=== PATIENT | female | born 1950 | race Two or more races ===

== ENCOUNTER 2019-08-29 15:34 | Inpatient (IN) | payer OTHER ==
[~2019-08-29] VITALS: Ht 160 cm; Wt 68.8 kg
[2019-08-29 15:36] VITALS: Ht 160 cm; Wt 68.8 kg
[2019-08-29 16:37] LABS: PLATELET COUNT 320 x10^3mcL (130-400)
[2019-08-29 16:49] LABS: RED CELL DISTRIBUTION WIDTH 16.3 % (11.5-14.5)
[2019-08-29 16:54] LABS: ALBUMIN 2.3 g/dL (3.4-5.0); BILIRUBIN TOTAL 0.34 mg/dL (0.20-1.00); CALCIUM 8.4 mg/dL (8.5-10.1); CARBON DIOXIDE 17.2 mmol/L (21-32); CREATININE SERUM 3.5 mg/dL (0.6-1.0); POTASSIUM SERUM 4.1 mmol/L (3.5-5.1); TOTAL PROTEIN, SERUM 6.9 g/dL (6.4-8.2)
[2019-08-29 17:20] LABS: BAND NEUTROPHIL 5 % (0-10); METAMYELOCTE 1 % (0-2); MONOCYTE 4 % (0-7); SEGMENTED NEUTROPHILS 88 % (37-75)
[2019-08-29 17:21] LABS: acanthocyte (spur cell) 2+; ovalocyte/elliptocyte 1+; rbc morphology (normal/abnorm) ABNORMAL (NORMAL)
[2019-08-29 17:22] LABS: PLATELET MORPHOLOGY PLATELETS NORMAL
[2019-08-29] MEDS ORDERED: LOSARTAN POTASS25 M1 (17:41)
[2019-08-29] MEDS ORDERED: AUTOJECT 21 EACH (17:41)
[2019-08-29] MEDS ORDERED: VITAMIN E100 IU (17:42)
[2019-08-29] MEDS ORDERED: MULTIVITAMIN1 SGL (17:42)
[2019-08-29 19:13] LABS: AMPHETAMINE QUAL UR NONE DETECTED (See below)
[2019-08-29 19:16] LABS: CHOLESTEROL/HDL RATIO 13.6; T3 TOTAL 0.75 ng/mL
[2019-08-29 19:31] LABS: FREE T4 1.73 ng/dL (0.76-1.46); FREE THYROXINE INDEX 3.6 ug/dL (1.4-4.5); T4(THYROXINE) 9.9 ug/dL (4.7-13.3)
[2019-08-29 21:46] VITALS: BP 141/74
[2019-08-29 23:10] VITALS: BP 138/67
[2019-08-29 23:11] LABS: BASOPHIL % 0.1 % (0-2); PLATELET COUNT 293 x10^3mcL (130-400)
[2019-08-29 23:12] LABS: RED CELL DISTRIBUTION WIDTH 16.8 % (11.5-14.5)
[2019-08-30] VITALS (7 sets, daily range): BP systolic 129–178; BP diastolic 62–91
[2019-08-30 06:04] LABS: BASOPHIL % 0.2 % (0-2); CALCIUM 8.2 mg/dL (8.5-10.1); CARBON DIOXIDE 19.2 mmol/L (21-32); MAGNESIUM 1.7 mg/dL (1.8-2.4); PHOSPHOROUS 2.8 mg/dL (2.5-4.9); PLATELET COUNT 278 x10^3mcL (130-400); POTASSIUM SERUM 3.4 mmol/L (3.5-5.1)
[2019-08-30 06:05] LABS: RED CELL DISTRIBUTION WIDTH 18.2 % (11.5-14.5)
[2019-08-31] VITALS (21 sets, daily range): BP systolic 120–160; BP diastolic 60–82
[2019-08-31 06:18] LABS: BASOPHIL % 0.3 % (0-2); PLATELET COUNT 355 x10^3mcL (130-400)
[2019-08-31 06:41] LABS: CALCIUM 8.2 mg/dL (8.5-10.1); CARBON DIOXIDE 18.3 mmol/L (21-32); CREATININE SERUM 3.3 mg/dL (0.6-1.0); MAGNESIUM 1.6 mg/dL (1.8-2.4); PHOSPHOROUS 3.4 mg/dL (2.5-4.9); POTASSIUM SERUM 3.9 mmol/L (3.5-5.1)
[2019-08-31 07:21] LABS: RED CELL DISTRIBUTION WIDTH 17.3 % (11.5-14.5)
[2019-08-31 23:54] LABS: BASOPHIL % 1.9 % (0-2); PLATELET COUNT 330 x10^3mcL (130-400)
[2019-08-31 23:55] LABS: RED CELL DISTRIBUTION WIDTH 17.4 % (11.5-14.5)
[2019-09-01 00:23] VITALS: BP 138/72
[2019-09-01 01:31] VITALS: BP 114/62
== END 2019-09-01 03:00 | disposition short-term general hospital (02) | DRG 871 ==
LOC: ED 15:34 → IC 18:28
PROVIDERS: Emergency Medicine; ADMIT Internal Medicine
PROC: 30233N1 Transfusion of Nonautologous Red Blood Cells into Peripheral Vein, Percutaneous Approach (ICD-10-PCS; principal; 2019-08-29)
DX: A41.9 Sepsis, unspecified organism (principal); I21.A1 Myocardial infarction type 2; J18.9 Pneumonia, unspecified organism; N17.9 Acute kidney failure, unspecified; E87.1 Hypo-osmolality and hyponatremia; K92.2 Gastrointestinal hemorrhage, unspecified; N39.0 Urinary tract infection, site not specified; D62 Acute posthemorrhagic anemia; I13.0 Hypertensive heart and chronic kidney disease with heart failure and stage 1 through stage 4 chronic kidney disease, or unspecified chronic kidney disease; I25.10 Atherosclerotic heart disease of native coronary artery without angina pectoris; D64.9 Anemia, unspecified; W19.XXXA Unspecified fall, initial encounter; E11.22 Type 2 diabetes mellitus with diabetic chronic kidney disease; N18.9 Chronic kidney disease, unspecified; I50.9 Heart failure, unspecified; E86.0 Dehydration; E87.6 Hypokalemia; E11.65 Type 2 diabetes mellitus with hyperglycemia; Y93.89 Activity, other specified; Y92.009 Unspecified place in unspecified non-institutional (private) residence as the place of occurrence of the external cause; Z79.4 Long term (current) use of insulin; Z95.1 Presence of aortocoronary bypass graft; Z87.440 Personal history of urinary (tract) infections
CPT/HCPCS: 36600; 82962; 83880; 84439; 87804; C9113; G0378; J0360; J0456; J0696; J1200; J1644; J1815; J1885; J2060; J2270; J2405; J3490; J7030; J7050; J7060; P9016; Q0092; Q0163

== ENCOUNTER 2019-11-07 22:35 | Inpatient (IN) | payer OTHER ==
[~2019-11-07] VITALS: Ht 162.6 cm; Wt 60.4 kg
[~2019-11-07 22:35] MED LIST: AUTOJECT 21 EACH; LOSARTAN POTASS25 M1; MULTIVITAMIN1 SGL; VITAMIN E100 IU
[2019-11-07 22:41] VITALS: Ht 162.6 cm; Wt 60.4 kg
[2019-11-07 23:49] LABS: BASOPHIL % 1.3 % (0-2); PLATELET COUNT 208 x10^3mcL (130-400)
[2019-11-07 23:54] LABS: RED CELL DISTRIBUTION WIDTH 15.3 % (11.5-14.5)
[2019-11-08 00:04] LABS: CALCIUM 9.5 mg/dL (8.5-10.1); CARBON DIOXIDE 16.9 mmol/L (21-32); CREATININE SERUM 2.4 mg/dL (0.6-1.0); POTASSIUM SERUM 4.3 mmol/L (3.5-5.1)
[2019-11-08 00:09] LABS: BILIRUBIN TOTAL 0.5 mg/dL (0.20-1.00)
[2019-11-08 00:13] LABS: TOTAL PROTEIN, SERUM 8.9 g/dL (6.4-8.2)
[2019-11-08] MEDS ORDERED: ASPIRIN CHILDRE81 MG PO (02:41)
[2019-11-08] MEDS ORDERED: AZOR 10-20 MG1 EACH PO (02:41)
[2019-11-08] MEDS ORDERED: HYDRALAZINE HCL25 MG PO (02:42)
[2019-11-08] MEDS ORDERED: CARVEDILOL ER40 MG PO (02:42)
[2019-11-08] MEDS ORDERED: LIPITOR40 MG PO (02:42)
[2019-11-08] MEDS ORDERED: HUMALOG100 UNIT/1 SQ (02:43)
[2019-11-08] MEDS ORDERED: LANTUS SOLOS100 U/M1 SC (02:43)
[2019-11-08] MEDS ORDERED: ISOSORBIDE DINI30 M2 PO (02:43)
[2019-11-08] MEDS ORDERED: NIT0.3 SL (02:43)
[2019-11-08 03:45] LABS: CHOLESTEROL/HDL RATIO 2.1
[2019-11-08 04:24] VITALS: BP 129/66
[2019-11-08 07:08] LABS: CALCIUM 9.5 mg/dL (8.5-10.1); CARBON DIOXIDE 18.4 mmol/L (21-32); CREATININE SERUM 2.4 mg/dL (0.6-1.0); POTASSIUM SERUM 4.5 mmol/L (3.5-5.1)
[2019-11-08 07:09] LABS: PHOSPHOROUS 5.3 mg/dL (2.5-4.9)
[2019-11-08 07:22] LABS: BASOPHIL % 0.6 % (0-2); PLATELET COUNT 180 x10^3mcL (130-400)
[2019-11-08 07:26] LABS: RED CELL DISTRIBUTION WIDTH 14.8 % (11.5-14.5)
[2019-11-08 07:30] VITALS: BP 119/57
[2019-11-08 11:40] VITALS: BP 161/71
[2019-11-08 12:48] VITALS: BP 141/76
[2019-11-08 15:03] LABS: microscopic required? YES; urine erythrocyte NEGATIVE (NEGATIVE)
[2019-11-08 15:29] LABS: AMPHETAMINE QUAL UR NONE DETECTED (See below)
[2019-11-08 16:37] VITALS: BP 110/48
[2019-11-08 19:55] VITALS: BP 144/68
[2019-11-09 05:32] VITALS: BP 151/58
[2019-11-09 07:41] VITALS: BP 126/59
[2019-11-09 08:07] LABS: BASOPHIL % 0.3 % (0-2); PLATELET COUNT 172 x10^3mcL (130-400)
[2019-11-09 08:26] LABS: RED CELL DISTRIBUTION WIDTH 14.8 % (11.5-14.5)
[2019-11-09 09:44] LABS: CALCIUM 9.8 mg/dL (8.5-10.1); CARBON DIOXIDE 16.5 mmol/L (21-32); CREATININE SERUM 2.2 mg/dL (0.6-1.0); PHOSPHOROUS 4.9 mg/dL (2.5-4.9); POTASSIUM SERUM 4.5 mmol/L (3.5-5.1)
[2019-11-09 11:29] VITALS: BP 115/61
[2019-11-09 15:47] VITALS: BP 141/71
[2019-11-09 19:27] VITALS: BP 114/58
[2019-11-10 04:33] VITALS: BP 151/74
[2019-11-10 06:57] LABS: BASOPHIL % 0.5 % (0-2); RED CELL DISTRIBUTION WIDTH 14.4 % (11.5-14.5)
[2019-11-10 07:11] LABS: PLATELET COUNT 163 x10^3mcL (130-400)
[2019-11-10 08:15] LABS: CARBON DIOXIDE 18.4 mmol/L (21-32); CREATININE SERUM 2.2 mg/dL (0.6-1.0); MAGNESIUM 1.9 mg/dL (1.8-2.4); PHOSPHOROUS 5.5 mg/dL (2.5-4.9); POTASSIUM SERUM 4.3 mmol/L (3.5-5.1)
[2019-11-10 08:33] VITALS: BP 168/76
[2019-11-10 12:08] VITALS: BP 152/63
[2019-11-10 16:35] VITALS: BP 109/66
[2019-11-10 21:14] VITALS: BP 144/70
[2019-11-11 06:00] VITALS: BP 120/52
[2019-11-11 06:50] LABS: BASOPHIL % 0.3 % (0-2); PLATELET COUNT 152 x10^3mcL (130-400); RED CELL DISTRIBUTION WIDTH 14.4 % (11.5-14.5)
[2019-11-11 07:13] LABS: CALCIUM 9.2 mg/dL (8.5-10.1); CARBON DIOXIDE 20.3 mmol/L (21-32); CREATININE SERUM 2.1 mg/dL (0.6-1.0); MAGNESIUM 2.2 mg/dL (1.8-2.4); POTASSIUM SERUM 4.7 mmol/L (3.5-5.1)
[2019-11-11 08:38] VITALS: BP 101/48
[2019-11-11 12:26] VITALS: BP 118/56
[2019-11-11 17:05] VITALS: BP 160/68
[2019-11-11 17:07] VITALS: BP 102/52
[2019-11-11 21:48] VITALS: BP 132/58
[2019-11-12 06:28] VITALS: BP 140/66
[2019-11-12 07:33] LABS: BASOPHIL % 0.5 % (0-2); PLATELET COUNT 155 x10^3mcL (130-400); RED CELL DISTRIBUTION WIDTH 13.8 % (11.5-14.5)
[2019-11-12 08:15] LABS: CARBON DIOXIDE 20.5 mmol/L (21-32); CREATININE SERUM 2.4 mg/dL (0.6-1.0); MAGNESIUM 2.2 mg/dL (1.8-2.4); PHOSPHOROUS 5.6 mg/dL (2.5-4.9)
[2019-11-12 08:25] VITALS: BP 136/60
[2019-11-12 11:58] LABS: CALCIUM 8.7 mg/dL (8.5-10.1); CARBON DIOXIDE 23.3 mmol/L (21-32); CREATININE SERUM 2.3 mg/dL (0.6-1.0); POTASSIUM SERUM 4.6 mmol/L (3.5-5.1)
[2019-11-12] MEDS ORDERED: CLOPIDOGREL75 M1 PO (13:01)
[2019-11-12] MEDS ORDERED: LIPITOR80 MG PO (13:01)
[2019-11-12] MEDS ORDERED: ECO81 PO (13:02)
[2019-11-12] MEDS ORDERED: CORE25 PO (13:02)
[2019-11-12] MEDS ORDERED: IMD60 PO (13:02)
[2019-11-12 13:39] VITALS: BP 143/67
[2019-11-12 14:08] VITALS: BP 143/67
== END 2019-11-12 18:47 | disposition home or self-care (01) | DRG 190 ==
LOC: ED 22:35 → DU 11-08 02:49 → MU 11-11 16:35
PROVIDERS: Family Medicine; ADMIT Student in an Organized Health Care Education/Training Program
DX: I21.4 Non-ST elevation (NSTEMI) myocardial infarction (principal); N17.0 Acute kidney failure with tubular necrosis; E11.22 Type 2 diabetes mellitus with diabetic chronic kidney disease; E11.65 Type 2 diabetes mellitus with hyperglycemia; I12.9 Hypertensive chronic kidney disease with stage 1 through stage 4 chronic kidney disease, or unspecified chronic kidney disease; N18.4 Chronic kidney disease, stage 4 (severe); E87.8 Other disorders of electrolyte and fluid balance, not elsewhere classified; D63.8 Anemia in other chronic diseases classified elsewhere; E83.39 Other disorders of phosphorus metabolism; E86.0 Dehydration; I25.10 Atherosclerotic heart disease of native coronary artery without angina pectoris; E78.00 Pure hypercholesterolemia, unspecified; Z68.21 Body mass index [BMI] 21.0-21.9, adult; Z95.1 Presence of aortocoronary bypass graft; Z79.84 Long term (current) use of oral hypoglycemic drugs; Z79.82 Long term (current) use of aspirin; Z79.899 Other long term (current) drug therapy; Z79.4 Long term (current) use of insulin
CPT/HCPCS: 82962; 83880; G0378; J0696; J1644; J1815; J2270; J2405; J3490; J7030